=== PATIENT | female | born 1995 | race Caucasian/White ===

== ENCOUNTER 2018-03-02 03:24 | Emergency (ER) | payer SELFPAY ==
[~2018-03-02] VITALS: Ht 157.5 cm; Wt 89.0 kg
[2018-03-02] MEDS ORDERED: IBUPROFEN 600MG TABLET PO ONE (06:30)
[2018-03-02 07:03] VITALS: BP 108/66
== END 2018-03-02 07:05 | disposition home or self-care (01) ==
LOC: ER 03:24
DX: M54.2 Cervicalgia (principal); R51 Headache; J45.909 Unspecified asthma, uncomplicated; Z79.899 Other long term (current) drug therapy; V49.19XA Passenger injured in collision with other motor vehicles in nontraffic accident, initial encounter; Y93.89 Activity, other specified; Y92.89 Other specified places as the place of occurrence of the external cause; Y99.8 Other external cause status
CPT/HCPCS: 81025; 99283; Z7610